=== PATIENT | female | born 1975 | race Caucasian/White ===

== ENCOUNTER 2021-12-31 15:20 | Emergency (ER) | payer OTHER ==
[~2021-12-31] VITALS: Ht 170.2 cm; Wt 83.9 kg
[2021-12-31 15:26] VITALS: BP 130/87
[2021-12-31] MEDS ORDERED: IRON325 M1 PO (15:30)
[2021-12-31] MEDS ORDERED: NORTRIPTYLINE H50 M3 PO (15:30)
[2021-12-31] MEDS ORDERED: TOPROL XL25 MG PO (15:30)
[2021-12-31] MEDS ORDERED: DOXYCYCLINE 10100 MG PO (16:14)
== END 2021-12-31 16:45 | disposition home or self-care (01) ==
LOC: ER 15:20
DX: T63.301A Toxic effect of unspecified spider venom, accidental (unintentional), initial encounter (principal); L03.313 Cellulitis of chest wall; F17.200 Nicotine dependence, unspecified, uncomplicated; Z79.899 Other long term (current) drug therapy; Z88.8 Allergy status to other drugs, medicaments and biological substances; Y92.89 Other specified places as the place of occurrence of the external cause